=== PATIENT | female | born 1985 | race African-American/Black ===

== ENCOUNTER 2018-07-17 08:25 | Emergency (ER) | payer OTHER ==
[~2018-07-17] VITALS: Ht 165.1 cm; Wt 103.0 kg
[~2018-07-17 08:25] MED LIST: OMEP20CA10 PO
[2018-07-17 10:11] VITALS: BP 136/82
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
== END 2018-07-17 11:00 | disposition home or self-care (01) ==
LOC: EEVIPCON 08:25 → ER 08:25
DX: S00.83XA Contusion of other part of head, initial encounter (principal); T76.21XA Adult sexual abuse, suspected, initial encounter; K21.9 Gastro-esophageal reflux disease without esophagitis; Z88.1 Allergy status to other antibiotic agents; Y08.89XA Assault by other specified means, initial encounter; Y93.89 Activity, other specified; Y92.89 Other specified places as the place of occurrence of the external cause; Y99.8 Other external cause status
CPT/HCPCS: 99283

== ENCOUNTER 2019-03-27 16:50 | Emergency (ER) | payer MEDICAID, OTHER ==
[~2019-03-27] VITALS: Ht 165.1 cm; Wt 110.5 kg
[2019-03-27] MEDS ORDERED: LIDOCAINE 1% Multi-Dose 20 ML VIAL. ONE (17:02)
[2019-03-27 17:03] VITALS: BP 125/68
--- NOTE | 2019-03-27 17:06 | PHYS DOC ---
Past History Past Medical History: GERD Past Surgical History: , Other Alcohol Use: None Drug Use: None Adult General Chief Complaint Chief Complaint: DENTAL PROBLEM HPI HPI Patient is a 33-year-old female who presents to the emergency room for evaluation of left lower dental pain. She states that she chipped her left lower posterior premolar, earlier today and is having increased pain. She has a dental appointment scheduled for tomorrow but would like this to see about getting a dental block so she can last through tomorrow. She denies any fevers or chills. Palpation of the affected area worsens her pain. There are no alleviating or exacerbating factors to her symptoms otherwise. Review of Systems Review of Systems Constitutional: Denies fever or chills [] Eyes: Denies change in visual acuity, redness, or eye pain [] HENT: Denies nasal congestion or sore throat [] Respiratory: Denies cough or shortness of breath [] Allergies Allergies Allergies Coded Allergies Type Severity Reaction Last Updated Verified levofloxacin Adverse Reaction Intermediate 06/15/14 Yes Physical Exam Physical Exam Constitutional: Well developed, well nourished, no acute distress, non-toxic appearance. [] HENT: Normocephalic, atraumatic, bilateral external ears normal, oropharynx moist, no oral exudates, nose normal. There are several missing teeth. There is a fracture and cavity of the posterior aspect of the left lower posterior premolar. The posterior most left lower molars present, the anterior to lower molars on the left are absent. There are several other absent teeth. [] Eyes: PERRLA, EOMI, conjunctiva normal, no discharge. [] Neck: Normal range of motion, no tenderness, supple, no stridor. [] Cardiovascular:Heart rate regular rhythm, no murmur [] Lungs & Thorax: Bilateral breath sounds clear to auscultation [] Abdomen: Bowel sounds normal, soft, no tenderness, no masses, no pulsatile masses. [] Skin: Warm, dry, no erythema, no rash. [] EKG EKG [] Radiology/Procedures Radiology/Procedures [] Course & Med Decision Making Course & Med Decision Making Inferior alveolar block performed with good anesthesia results. I discussed importance of dental follow-up tomorrow as scheduled and return precautions. Dragon Disclaimer Dragon Disclaimer This electronic medical record was generated, in whole or in part, using a voice recognition dictation system. Departure Departure: Impression: Primary Impression: Dental caries Additional Impression: Pain, dental Disposition: 01 HOME, SELF-CARE Condition: STABLE Referrals: ELIZ AGUAYO DO (PCP) Patient Instructions: Dental Caries, Dental Fracture Problem Qualifiers DIEGO CESPEDES MD Mar 27, 2019 17:06
== END 2019-03-27 17:18 | disposition home or self-care (01) ==
LOC: ER 16:50
DX: S02.5XXA Fracture of tooth (traumatic), initial encounter for closed fracture (principal); K02.9 Dental caries, unspecified; K21.9 Gastro-esophageal reflux disease without esophagitis; Z88.1 Allergy status to other antibiotic agents; X58.XXXA Exposure to other specified factors, initial encounter; Y93.89 Activity, other specified; Y92.89 Other specified places as the place of occurrence of the external cause; Y99.8 Other external cause status
CPT/HCPCS: 64400; 99284

== ENCOUNTER 2020-02-16 10:27 | Emergency (ER) | payer MEDICAID ==
[~2020-02-16] VITALS: Ht 162.6 cm; Wt 120.0 kg
[~2020-02-16 10:27] MED LIST changes: -OMEP20CA10 PO; +OMEP20CA16 PO
--- NOTE | 2020-02-16 10:44 | PHYS DOC ---
Past History Past Medical History: GERD Past Surgical History: , Other Alcohol Use: None Drug Use: None General Adult EDM: Chief Complaint: FLANK PAIN HPI: HPI: 34-year-old female presents to the ER with point of left flank pain that started 2 days ago. Her pain started somewhat abruptly and is rated as moderate to severe and occasionally worse with movement. She has tried Tylenol 3 and Flexeril without relief. She does have some darkening of her urine but no difficulty with urination. No fever or chills reported. No history of ureteral stones or pyelonephritis. Review of Systems: Review of Systems: All other systems negative except as documented in HPI. Heart Score: Risk Factors: Risk Factors: DM, Current or recent (<one month) smoker, HTN, HLP, family history of CAD, obesity. Risk Scores: Score 0 - 3: 2.5% MACE over next 6 weeks - Discharge Home Score 4 - 6: 20.3% MACE over next 6 weeks - Admit for Clinical Observation Score 7 - 10: 72.7% MACE over next 6 weeks - Early Invasive Strategies Allergies: Allergies: Allergies Coded Allergies Type Severity Reaction Last Updated Verified levofloxacin Adverse Reaction Intermediate 02/16/20 Yes Physical Exam: PE: Constitutional: Well developed, well nourished, appears uncomfortable HENT: Normocephalic, atraumatic, bilateral external ears normal, oropharynx moist, no oral exudates, nose normal. [] Eyes: PERRLA, EOMI, conjunctiva normal, no discharge. [] Neck: Normal range of motion, no tenderness, supple, no stridor. [] Cardiovascular:Heart rate regular rhythm, no murmur [] Lungs & Thorax: Bilateral breath sounds clear to auscultation [] Abdomen: Bowel sounds normal, soft, no tenderness, no masses, no pulsatile masses. [] Skin: Warm, dry, no erythema, no rash. [] Back: No tenderness, no CVA tenderness. [] Extremities: No tenderness, no cyanosis, no clubbing, ROM intact, no edema. [] Neurologic: Alert and oriented X 3, normal motor function, normal sensory fun ction, no focal deficits noted. [] Psychologic: Affect normal, judgement normal, mood normal. [] EKG: EKG: [] Radiology/Procedures: Radiology/Procedures: CT abd/pelvis with contrast: Impression: Small hiatal hernia. Esophagus is distended with fluid. Findings may relate to reflux. Gastric lap band noted. No inflammatory findings involving the colon. No collecting system obstruction or bowel obstruction identified. Course & Med Decision Making: Course & Med Decision Making Pertinent Labs and Imaging studies reviewed. (See chart for details) 1044: Patient is seen for left flank pain. She has no appreciable tenderness with palpation of the back. Will obtain labs and urinalysis to start, give IV fluids and Toradol for pain. Consider CT scan based on urinalysis results. 1235: CT scan is complete and is unremarkable. The patient's laboratory work-up reveals elevated liver enzymes but no other acute abnormality. We discussed possibility of possible musculoskeletal pain. Will start muscle relaxer and steroids and provide a small on her tramadol. Patient is to follow-up next week for reevaluation of her low back pain and to discuss elevated liver enzymes. Dragon Disclaimer: Dragon Disclaimer: This electronic medical record was generated, in whole or in part, using a voice recognition dictation system. Departure Departure: Impression: Primary Impression: Left lumbar pain Additional Impression: Elevated liver enzymes Disposition: HOME/RESIDENCE PRIOR TO ADM Condition: STABLE Referrals: ELIZ AGUAYO DO (PCP) Please follow up in 5-7 days to discuss back pain and elevated LFTs. Patient Instructions: Back Pain, Adult Scripts Tramadol Hcl (TRAMADOL HCL) 50 Mg Tablet 50 MG PO PRN Q6HRS PRN for PAIN for 3 Days, #12 TAB 0 Refills Prov: BEKA TATE DO 02/16/20 Diclofenac Sodium (DICLOFENAC SODIUM) 75 Mg Tablet.dr 1 TAB PO BID for Pain for 10 Days, #20 TAB 1 Refill Prov: BEKA TATE DO 02/16/20 Cyclobenzaprine Hcl (CYCLOBENZAPRINE HCL) 10 Mg Tablet 1 TAB PO TID for Muscle spasm, #15 TAB Prov: BEKA TATE DO 02/16/20 Justification of Admission: Justification of Admission: Justification of Admission Dx: N/A BEKA TATE DO Feb 16, 2020 10:44
[2020-02-16] MEDS ORDERED: IV NORMAL SALINE 1,000ML 1,000 ML IV ONE (10:45)
[2020-02-16] MEDS ORDERED: KETOROLAC 30 MG/ML VIAL. IVP ONE (11:00)
[2020-02-16 11:14] LABS: BASO % 0 % (0-3); EOS # 0.1 x10^3/uL (0.0-0.7); EOS % 1 % (0-3); HEMATOCRIT 40.2 % (36.0-47.0); HEMOGLOBIN 13.1 g/dL (12.0-15.5); LYMPH # 1.7 x10^3/uL (1.0-4.8); LYMPH % 15 % (24-48); MEAN CORPUSCULAR HEMOGLOBIN 27 pg (25-35); MEAN CORPUSCULAR HGB CONC 33 g/dL (31-37); MEAN CORPUSCULAR VOLUME 82 fL (79-100); MONO # 0.3 x10^3/uL (0.0-1.1); MONO % 2 % (0-9); NEUT # 9.5 x10^3uL (1.8-7.7); NEUT % 82 % (31-73); PLATELET COUNT 434 x10^3/uL (140-400); RED BLOOD COUNT 4.91 x10^6/uL (3.50-5.40); RED CELL DISTRIBUTION WIDTH 17.5 % (11.5-14.5); WHITE BLOOD COUNT 11.7 x10^3/uL (4.0-11.0)
[2020-02-16 11:26] LABS: CALCIUM 9.2 mg/dL (8.5-10.1); CREATININE 0.9 mg/dL (0.6-1.0); GFR 85.7; POTASSIUM 3.3 mmol/L (3.5-5.1)
[2020-02-16 11:31] LABS: ALBUMIN 3.3 g/dL (3.4-5.0); ALBUMIN/GLOBULIN RATIO 0.6 (1.0-1.7); TOTAL BILIRUBIN 0.7 mg/dL (0.2-1.0); TOTAL PROTEIN 8.4 g/dL (6.4-8.2)
[2020-02-16 11:39] LABS: BILIRUBIN,URINE NEG (NEG); CLARITY,URINE HAZY; COLOR,URINE YELLOW; GLUCOSE,URINE NEG (NEG)
[2020-02-16 11:40] LABS: BACTERIA,URINE FEW /HPF (0-FEW); NITRITE,URINE NEG (NEG); RBC,URINE OCC /HPF (0-2); SQUAMOUS EPITHELIAL CELL,UR MANY /LPF
[2020-02-16] MEDS ORDERED: IOHEXOL 300 MG/ML 75 ML VIAL. IV ONE (12:00)
--- NOTE | 2020-02-16 12:30 | RAD ---
Examination: CT ABD PELV W/ IV CONTRST ONLY History: left flank pain Comparison/Correlation: 03/09/2013 CT abdomen and pelvis without contrast Findings: Axial images of the abdomen and pelvis were obtained following IV contrast. Sagittal and coronal reformatted images were provided. Gastric lap band is present. Fluid is present within the distended distal esophagus with small hiatal hernia noted. Liver, spleen, pancreas, adrenal glands, and kidneys are normal. The liver fossa is unremarkable. Appendix is normal. Moderate quantity of stool in the colon noted. No extraluminal gas. No obstruction. Intrauterine device noted. Appendix is normal. Impression: Small hiatal hernia. Esophagus is distended with fluid. Findings may relate to reflux. Gastric lap band noted. No inflammatory findings involving the colon. No collecting system obstruction or bowel obstruction identified. PQRS Compliance Statement: One or more of the following individualized dose reduction techniques were utilized for this examination: 1. Automated exposure control 2. Adjustment of the mA and/or kV according to patient size 3. Use of iterative reconstruction technique Electronically signed by: Guido Neil MD (02/16/2020 12:27 PM) [id number]
[2020-02-16] MEDS ORDERED: DICL75TA PO (12:38)
[2020-02-16] MEDS ORDERED: TRAM50TA PO (12:38)
[2020-02-16] MEDS ORDERED: CYCL-331 PO (12:38)
[2020-02-16 13:00] VITALS: BP 134/77
== END 2020-02-16 13:05 | disposition home or self-care (01) ==
LOC: ER 10:27
DX: M54.5 Low back pain (principal); R74.8 Abnormal levels of other serum enzymes; K21.9 Gastro-esophageal reflux disease without esophagitis; Z98.890 Other specified postprocedural states; Z88.1 Allergy status to other antibiotic agents
CPT/HCPCS: 36415; 74177; 80053; 81001; 81025; 83690; 84484; 85025; 96374; 96375; 99285; J1885; J3010; J7030; Q9967

== ENCOUNTER → 2020-06-22 | Outpatient (CLI) | payer MEDICAID ==
[~2020-06-22] MED LIST changes: +CYCL-331 PO; +DICL75TA PO; +TRAM50TA PO
[2020-06-22 17:37] LABS: BASO # 0.1 x10^3/uL (0.0-0.2); BASO % 1 % (0-3); EOS # 0.2 x10^3/uL (0.0-0.7); EOS % 2 % (0-3); HEMATOCRIT 39.5 % (36.0-47.0); HEMOGLOBIN 12.8 g/dL (12.0-15.5); LYMPH # 3.7 x10^3/uL (1.0-4.8); LYMPH % 30 % (24-48); MEAN CORPUSCULAR HEMOGLOBIN 28 pg (25-35); MEAN CORPUSCULAR HGB CONC 32 g/dL (31-37); MEAN CORPUSCULAR VOLUME 86 fL (79-100); MONO # 0.5 x10^3/uL (0.0-1.1); MONO % 4 % (0-9); NEUT # 7.9 x10^3uL (1.8-7.7); NEUT % 64 % (31-73); PLATELET COUNT 406 x10^3/uL (140-400); RED BLOOD COUNT 4.61 x10^6/uL (3.50-5.40); RED CELL DISTRIBUTION WIDTH 15.1 % (11.5-14.5); WHITE BLOOD COUNT 12.4 x10^3/uL (4.0-11.0)
[2020-06-22 18:00] LABS: ALBUMIN 3.3 g/dL (3.4-5.0); ALBUMIN/GLOBULIN RATIO 0.7 (1.0-1.7); CALCIUM 8.5 mg/dL (8.5-10.1); CREATININE 0.9 mg/dL (0.6-1.0); GFR 85.7; PHOSPHORUS 1.9 mg/dL (2.6-4.7); TOTAL BILIRUBIN 0.3 mg/dL (0.2-1.0); TOTAL PROTEIN 7.8 g/dL (6.4-8.2); URIC ACID 5.6 mg/dL (2.6-6.0)
[2020-06-22 19:03] LABS: POTASSIUM 2.9 mmol/L (3.5-5.1)
[2020-06-23 01:07] LABS: HEMOGLOBIN A1C 5.7 % (4.8-5.6)
[2020-06-23 15:23] LABS: THYROID STIM HORMONE (TSH) 0.864 uIU/mL (0.358-3.740)
== END ==
LOC: LAB 16:54
PROVIDERS: ATTEND Surgery
DX: K21.9 Gastro-esophageal reflux disease without esophagitis (principal); K95.09 Other complications of gastric band procedure; E13.10 Other specified diabetes mellitus with ketoacidosis without coma; E66.01 Morbid (severe) obesity due to excess calories; Z68.41 Body mass index [BMI] 40.0-44.9, adult
CPT/HCPCS: 36415; 80053; 80061; 82306; 82607; 82746; 83036; 83540; 83735; 84100; 84443; 84550; 85025